=== PATIENT | male | born 1940 | race Caucasian/White ===

== ENCOUNTER 2016-12-27 06:18 | Outpatient (CLI) | payer MEDICARE, OTHER ==
[~2016-12-27] VITALS: Ht 177.8 cm; Wt 102.2 kg
--- NOTE | ~2016-12-27 | CATH ---
Cardiac Diagnostic Report Demographics Patient Name VERÓNICA Bush Gender Male Date of 1940 Age 76 year(s) Patient Number [id number] Date of Study 12/27/2016 Visit Number [id number] Room Number G63[address] [place] [id number] Ht 177.8 cm Wt 102.2 kg Referring Forman Michael Primary Physician Physician MD Performing Zoe Jenkins MD Secondary Physician Physician Diagnostic Zoe Jenkins MD Assisting Physician Physician Interventional Physician International Manager Physician Findings and Conclusions Diagnostic Findings and Conclusion 3 vessel CAD 1 of 1 grafts patent Diagnostic Recommendations Medical Therapy Procedure Description The patient was brought to the diagnostic cardiac catheterization-EP laboratory in the fasting, non-sedated state. Informed consent was obtained in the written and verbal form after the risks and benefits were explained. The patient had no further questions and agreed to proceed. The planned puncture-incision site(s) were shaved and prepped with ChloraPrep and draped in the usual sterile manner. Conscious sedation, supplemental oxygen, and pain control medications were delivered by a registered nurse under physician guidance. Surface ECG rhythm, blood pressure measurement, and pulse oximetry were monitored throughout the procedure. Arterial access. The access site was infiltrated with lidocaine. The vessel was entered with the Seldinger technique. A sheath was advanced into the vessel and used for catheter placement. Selective left coronary angiography. A catheter was advanced into the left coronary vessel ostium under Fluoroscopic guidance. Contrast was injected by hand. Images were obtained in multiple projections. Selective right coronary angiography. A catheter was advanced into the right coronary vessel ostium under fluoroscopic guidance. Contrast was injected by hand. Images were obtained in multiple projections. Selective SVG angiography. A catheter was advanced into the graft proximal anastomosis under fluoroscopic guidance. Contrast was injected by hand. Images were obtained in multiple projections. Left heart catheterization. A catheter was advanced across the aortic valve to the left ventricle under fluoroscopic guidance. Resting hemodynamics were obtained. Arterial artery hemostasis. Hemostasis was achieved. The patient was transferred to a regular nursing floor via cart accompanied by a nurse. The patient left the laboratory in stable condition. Diagnostic Cath Status: Elective Procedure Procedure Type Indications: Dyspnea with exertion and Unstable exertional chest tightness. The procedure was explained in detail to the patient. Risks, complications and alternative treatments were reviewed. Written consent was obtained. Medications Reviewed with Patient prior to Procedure. Angiographic Findings Dominance: Right Cardiac Arteries and Lesion Findings LMCA: Medium caliber Lesion on LMCA: Mid subsection.30% stenosis . LAD: Large, patent stents. Diagonal 1 is small and okay LCx: OM 1 is large. [place] CFX vessel is medium and okay Lesion on Prox CX: Ostial.100% stenosis . Lesion on 1st Ob [place]: Mid subsection.40% stenosis . RCA: PL and PDA are both small and okay Cardiac Grafts - There is a Vein graft that originates at the Aorta Left and attaches to the Mid CX (Patent). Coronary Tree Procedure Data Procedure Date Date: 12/27/2016Start: 08:36 AMEnd: 09:02 AM Entry Locations - Retrograde Percutaneous access was performed through the Right Femoral artery (Primary location). A 6 Fr sheath was inserted. Hemostasis was successfully obtained using Angio-Seal STS PLUS ([place]). Closure Comments: Angioseal deployed by Carina AMOS(Nikita). Procedure Medications Order and Administration + + +-------+------+ !Time !Medication !Dosage !Route ! + + +-------+------+ !12/27/2016 08:31 AM !Versed !1 mg !I.V. ! + + +-------+------+ !12/27/2016 08:31 AM !Fentanyl !50 mcg !I.V. ! + + +-------+------+ Devices Used - A6 Fr. BS JL 4 Diag. Catheterwas used for:Left coronary angiography. - A6 Fr. BS JR 4 Diag. Catheterwas used for:Right coronary angiography. Comments: and SVG-CFX. - A6 Fr. BS Angled Pigtail Diag. Catheterwas used for:LV Pressures. Contrast Material - Isovue 83925 ml Fluoroscopy Time: Diagnostic: 3:36 minutes. Total: 3:36 minutes. Fluoroscopy Dose: Diagnostic: 1099 mGy. Total: 1099 mGy. Estimated Blood Loss: 10 ml. Medical History Performed Procedures and Imaging Results - Stress testing with SPECT MPIwas performed. Results were: Positive. Risk/Extent of ischemia was: Intermediate risk. Allergies - No known allergies. Risk Factors The patient risk factors include:prior PCI;prior CABG;hypertension, last creatinine: 1 mg/dl, creatinine clearance: 90.84 ml/min, dyslipidemia and former tobacco use. Admission Data Admission Date: 12/27/2016 Admission Time: 06:18 AM Admit Source: Other Insurance Payors: Medicare. Admission Medications + +------+------+ + + + + !Medication !Dosage!Times !Last !Last !Administered !Comments ! ! ! !Per !Delivery !Delivery ! ! ! ! ! !Day !Date !Time ! ! ! + +------+------+ + + + + !Clopidogrel ! ! ! ! !Yes ! ! + +------+------+ + + + + !ARB (any) ! ! ! ! !Yes ! ! + +------+------+ + + + + !Statin (any)! ! ! ! !Yes ! ! + +------+------+ + + + + !Beta Alex! ! ! ! !Yes ! ! !(any) ! ! ! ! ! ! ! + +------+------+ + + + + Clinical Evaluation Leading to Procedure - The patient's CAD presentation was assessed as: Unstable angina. - The patient's anginal syndrome during the past two weeks was assessed as: Class II according to the [place] Cardiovascular Society Classification System (CCS). Anti-anginal medications were prescribed during the past two weeks. The medications are: Beta Blockers and Ca channel Blockers. 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 [facility] . Ejection Fraction - 12/14/2016 - Method: Radionucleotide. EF%: 61. Hemodynamics Condition: Rest O2 Consumption: Estimated: 239.58Heart Rate: 54 bpm Pressures (mmHg) +-----+ + !Site !Pressure ! +-----+ + !AO !127/64 (94) ! +-----+ + !LV !125/6 ,17 ! +-----+ + !LV !132/7 ,14 ! +-----+ + !AO !130/65 (92) ! +-----+ + !LV !134/9 ,15 ! +-----+ + Valve Gradients and Areas + +---------+---------+---------+ +---------+ + !Valve !Peak !Mean !Area !Index !Flow !Source ! + +---------+---------+---------+ +---------+ + !Aortic !1 !0 ! ! ! ! ! + +---------+---------+---------+ +---------+ + !Aortic !1 !0 ! ! ! ! ! + +---------+---------+---------+ +---------+ + Shunts Oxygen Values O2 Capacity 202.64 O2 Consumption 239.58 Discharge Data Discharge Date: 12/27/2016 Hospital Status: Outpatient Signatures dtt: Gregory Enriquez (cardio) dtd: 12/27/16 0836 Physician Self Edit
[~2016-12-27 06:18] MED LIST: ALLOPURINOL300 MG PO; COZAAR100 MG PO; CPAP INH; LOPRESSOR50 MG PO; NITROSTAT0.4 MG SL; NORVASC5 MG PO; PLAVIX75 MG PO; PROTONIX40 MG PO; ROSUVASTATIN CA40 MG PO
--- NOTE | 2016-12-27 07:31 | NUR ---
2 iv attempets made per michellern
[2016-12-27] MEDS ORDERED: PEPCID20 MG PO (11:15)
== END 2016-12-27 12:05 | disposition disaster alternative care site (69) ==
LOC: GCAT 06:18 → GPCU 06:18 → GPOC 06:30 → GCAT 12:05 → GPOC 14:00
PROC: 4A023N7 Measurement of Cardiac Sampling and Pressure, Left Heart, Percutaneous Approach (ICD-10-PCS; principal; 2016-12-27)
PROC: B210YZZ Fluoroscopy of Single Coronary Artery using Other Contrast (ICD-10-PCS; 2016-12-27)
DX: I25.110 Atherosclerotic heart disease of native coronary artery with unstable angina pectoris (principal)
CPT/HCPCS: C1760; J1644; J2001; J2250; J3010; J7030